=== PATIENT | male | born 1935 | race Caucasian/White ===

== ENCOUNTER 2018-02-16 15:09 | Inpatient (IN) | payer BC ==
[~2018-02-16] VITALS: Ht 162.6 cm; Wt 99.3 kg
[~2018-02-16 15:09] MED LIST: ADULT LOW DOSE81 MG PO; DESYREL; KLONOPIN; LORTAB 5 MG/5001 TAB PO; NABUMETONE; NORCO 5-325 TA1 EACH PO; PRINIVIL; RELAFEN500 MG PO; SIMVASTATIN
[2018-02-16 15:23] VITALS: BP 112/79
[2018-02-16 15:57] LABS: ABSOLUTE EOSINOPHILS 0.2 thou/uL (0.0-0.7); ABSOLUTE LYMPHOCYTES 0.6 thou/uL (0.8-5.3); ABSOLUTE MONOCYTES 0.4 thou/uL (0.0-1.2); ABSOLUTE NEUTROPHILS 4.6 thou/uL (1.6-8.1); BASOPHILS 0.6 %; EOSINOPHILS 3.7 %; HEMATOCRIT 39.3 % (42.0-52.0); LYMPHOCYTES 10.3 %; MCH 33.6 pg (26.0-34.0); MCHC 33.1 g/dL (28.0-37.0); MCV 101.4 fL (80.0-100.0); MONOCYTES 7.4 %; MPV 7.4 fl. (7.2-11.1); NUCLEATED RBCS 0 /100WBC; PLATELET COUNT* 201 thou/uL (150-400); RBC 3.88 mil/uL (4.50-6.00); RDW-CV 13.8 % (10.5-14.5); WBC 5.9 thou/uL (4.0-11.0)
[2018-02-16 16:27] LABS: ALKALINE PHOSPHATASE 54 U/L (46-116); ANION GAP 6 mmol/L (7-16); BUN 18 mg/dL (7-18); CALCIUM 8.8 mg/dL (8.5-10.1); CHLORIDE 102 mmol/L (98-107); CO2 31 mmol/L (21-32); CREATININE 0.9 mg/dL (0.6-1.3); GLUCOSE 145 mg/dL (70-99); LIPASE 74 U/L (73-393); NT-PRO BRAIN NAT PEPTIDE 220 pg/mL (<300); POTASSIUM 3.7 mmol/L (3.5-5.1); SGOT 19 U/L (15-37); SGPT 30 U/L (30-65); SODIUM 139 mmol/L (136-145); TOTAL BILIRUBIN 0.3 mg/dL (<0.1-1.0); TOTAL PROTEIN 6.9 g/dL (6.4-8.2); TROPONIN-I LEVEL <0.06 ng/mL (<0.06)
[2018-02-16 16:42] LABS: BE 5.5 mmol/L (-2 to +3); PO2 86.6 mmHg (75.0-100.0); pH 7.383 (7.340-7.450)
[2018-02-16 18:10] VITALS: BP 136/82
[2018-02-16] MEDS ORDERED: XANAX 0.25 MG0.25 MG PO (18:23)
[2018-02-16] MEDS ORDERED: NEURONTIN600 MG PO (18:24)
[2018-02-16] MEDS ORDERED: LASIX 40 MG TAB40 M2 PO (18:24)
[2018-02-16] MEDS ORDERED: SERTRALINE HCL100 MG PO (18:26)
[2018-02-16] MEDS ORDERED: NEUPRO1 EAC1 TOP (18:26)
[2018-02-16] MEDS ORDERED: TOPAMAX 25 MG T25 M1 PO (18:27)
[2018-02-16] MEDS ORDERED: TRAMADOL 50 MG50 MG PO (18:27)
[2018-02-16] MEDS ORDERED: ULTRAM 50MG TAB50 MG PO (18:28)
[2018-02-16] MEDS ORDERED: LIPITOR10 MG PO (18:29)
[2018-02-16 21:00] VITALS: BP 151/75
[2018-02-17] VITALS: BP 124/71
[2018-02-17 04:38] VITALS: BP 126/66
[2018-02-17 08:30] VITALS: BP 139/75
--- NOTE | 2018-02-17 10:12 | EKG ---
[place] [address] ELECTROCARDIOGRAM REPORT Name: DANA PEREZ Room: [address] IN .R.#: [id number] Admission: 02/16/18 Attend Phys: Taco Gaitan Discharge: Date of : 37 Report #: [id number] THIS REPORT FOR: //name// [facility] ED Test Date: 2018-02-16 Test Time: 15:21:01 Pat Name: DANA CHRIS Department: Room: Gender: Course Instructor: : 1935 Requested By: Earline Matias Order Number: [id number] MD: Maxi Ferrer Measurements Intervals [place] Rate: 116 P: 22 ID: [id number] QRS: 59 QRSD: 86 T: -6 QT: 312 QTc: 434 Interpretive Statements Sinus tachycardia Borderline T abnormalities, inferior leads No previous ECG available for comparison Electronically Signed On 02-17-2018 10:12:35 CDT by Maxi Ferrer [email or web address] <ELECTRONICALLY SIGNED> By: Maxi Ferrer MD, [facility] 02/17/18 1012 1521 20 Maxi Ferrer MD, FACC /EPI
[2018-02-17 12:12] VITALS: BP 141/76
[2018-02-17 15:48] VITALS: BP 146/75
[2018-02-17 19:30] VITALS: BP 107/60
[2018-02-18] VITALS: BP 125/63; BP 138/84
[2018-02-18 03:48] VITALS: BP 143/91
[2018-02-18 07:55] VITALS: BP 134/69
--- NOTE | 2018-02-18 08:12 | CON ---
[address] [address] CONSULTATION Name: DANA PEREZ Room: [address] IN M.R.#: [id number] Admission: 02/16/18 Attend Phys: Taco Gaitan Discharge: Date of : 37 Report #: [id number] THIS REPORT FOR: //name// CC: Josué Caruso REASON FOR CONSULTATION: Acute respiratory failure. HISTORY OF PRESENT ILLNESS: This is an 83-year-old male patient with history of COPD and obstructive sleep apnea. He told me he has an oxygen concentrator at home, that he wears oxygen at night. Also, he had a CPAP machine for almost 10 years now, but he does not use it because the mask is uncomfortable. He told me he has history of COPD. He presented to the hospital with a 2-day history of increasing shortness of breath, cough and some wheezes, although he does not think that wheezes are too much. The cough is mostly dry, not producing any sputum. He denied any sick contact. He denies any runny nose, sore throat. He denied any fever, chills, chest pain, or abdominal pain. He had no lower extremity edema. He denied any headache or blurring of vision. He denied any PND or orthopnea. He had no calf tenderness, was ambulating fairly well. Upon hospitalization, he was placed on oxygen and when I saw him this morning, he reports some improvement. ALLERGIES: AMOXICILLIN AND AUGMENTIN. HOME MEDICATIONS: Aspirin, alprazolam, Lasix, gabapentin, Neupro, sertraline, tramadol, atorvastatin. PAST SURGICAL HISTORY: Bilateral shoulder surgery, angioplasty, CABG, appendectomy, history of surgery for throat cancer, left knee surgery, and restless leg syndrome. PAST MEDICAL HISTORY: Includes restless leg syndrome, COPD, chronic respiratory failure on home oxygen. FAMILY HISTORY: Reviewed with the patient, noncontributory. SOCIAL HISTORY: He is an ex-smoker, quit 30 years ago, but he reports that he smoked for 30 years. REVIEW OF SYSTEMS: He denied fever, chills, blurring of vision, tinnitus, sinus congestion, dysarthria. He denied nausea, vomiting, palpitations, localized pain, depression, thyroid disease, bleeding from any orifice. The rest of the review of system was negative, 12-system review of the patient. PHYSICAL EXAMINATION: [place] [address] CONSULTATION Name: CHRISDANA DANG Taco Room: [address]#: [id number] Admission: 02/16/18 Attend Phys: Taco Gaitan Discharge: Date of : 37 Report #: [id number] GENERAL: Alert, cooperative, oriented. VITAL SIGNS: On examination, he is on 2 liters oxygen with saturation more than 90%. His blood pressure is 126/66, breathing 18 times per minute with a pulse of 80, afebrile. HEAD: Normocephalic, atraumatic. EYES: Pupils are equal, reactive to light. Extraocular muscle movement intact. NECK: Supple. No palpable lymph node, no palpable thyroid. Trachea is central. CHEST: Diminished air movement bilaterally, prolonged expiratory phase with wheezes. Some occasional rhonchi. HEART: S1, S2. No murmur, no gallop. ABDOMEN: Obese, soft, lax, benign, nontender, no masses felt, no tenderness. No hepatosplenomegaly. SKIN: Warm and dry, normal color for age and race, no rash. EXTREMITIES: Lower extremities, no edema noted. No calf tenderness. No clubbing, no cyanosis. NEUROLOGIC: Awake, alert, oriented. Moving 4 extremities spontaneously. No focal weakness. PSYCHIATRIC: Normal insight and judgment. LYMPHATICS: No palpable lymph node. LABORATORY DATA: His imaging was reviewed. His chest x-ray did not show acute process; however, the CTA although was negative for pulmonary embolus, but showed some scattered infiltrates bilaterally. His ABGs are 7.38/55/86. His white cell blood count was 5.9, hemoglobin of 13 and platelets of 210. His creatinine was 0.9 and his BNP was not elevated. Troponin was not elevated. Bicarbonate was 31 with a sodium of 139. IMPRESSION: 1. Xbreb-pe-kegjimc respiratory failure. 2. Chronic obstructive pulmonary disease exacerbation. 3. History of obstructive sleep apnea, although noncompliant to CPAP machine. 4. History of coronary artery disease. 5. History of hypertension. At this point, the patient will be continued to monitor in the hospital. I would continue the patient on antibiotics. Continue to monitor fluid status. Consider further diuresis. He is currently on his home dose of Lasix, continue scheduled nebulization treatment, IV steroids. The patient is reporting some improvement. However, he was asking me if he can go home today, I did advise him I would recommend at least another day of IV antibiotic and steroids before switching to p.o. steroids and start discussing discharge. [address] [address] CONSULTATION Name: DANA PEREZ Room: [address] IN M.R.#: [id number] Admission: 02/16/18 Attend Phys: Taco Gaitan Discharge: Date of : 37 Report #: [id number] Thank you for the consult. We will follow along with you. <ELECTRONICALLY SIGNED> By: Taylor Giles MD 02/18/18811 1004 1251Dsteven Romero MD /[place]
[2018-02-18] MEDS ORDERED: LEVAQUIN 500 M500 M2 PO (11:19)
[2018-02-18] MEDS ORDERED: PREDNISONE 10 M10 MG PO (11:20)
[2018-02-18] MEDS ORDERED: NABUMETONE 750750 M1 PO (11:55)
[2018-02-18 12:00] VITALS: BP 132/69
[2018-02-18 12:13] VITALS: BP 132/69
[2018-02-18] MEDS ORDERED: DUONEB 2.5-0.5 M3 ML INH (13:08)
== END 2018-02-18 13:03 | disposition home or self-care (01) | DRG 871 ==
LOC: M.ERS 15:09 → M.TBA-ER 16:20 → M.2W 16:20
PROVIDERS: Physician Assistant; ADMIT Internal Medicine
DX: A41.9 Sepsis, unspecified organism (principal); J15.6 Pneumonia due to other Gram-negative bacteria; J96.21 Acute and chronic respiratory failure with hypoxia; J96.22 Acute and chronic respiratory failure with hypercapnia; J44.0 Chronic obstructive pulmonary disease with (acute) lower respiratory infection; J44.1 Chronic obstructive pulmonary disease with (acute) exacerbation; G47.33 Obstructive sleep apnea (adult) (pediatric); I10 Essential (primary) hypertension; E78.5 Hyperlipidemia, unspecified; E66.9 Obesity, unspecified; G25.81 Restless legs syndrome; I25.10 Atherosclerotic heart disease of native coronary artery without angina pectoris; Z88.1 Allergy status to other antibiotic agents; Z99.81 Dependence on supplemental oxygen; Z98.61 Coronary angioplasty status; Z95.1 Presence of aortocoronary bypass graft; Z87.891 Personal history of nicotine dependence; Z85.810 Personal history of malignant neoplasm of tongue; Z68.37 Body mass index [BMI] 37.0-37.9, adult; Z79.2 Long term (current) use of antibiotics; Z79.51 Long term (current) use of inhaled steroids

== ENCOUNTER → 2018-06-09 | Outpatient (CLI) | payer BC ==
[~2018-06-09] MED LIST changes: +DUONEB 2.5-0.5 M3 ML INH; +LASIX 40 MG TAB40 M2 PO; +LEVAQUIN 500 M500 M2 PO; +LIPITOR10 MG PO; +NABUMETONE 750750 M1 PO; +NEUPRO1 EAC1 TOP; +NEURONTIN600 MG PO; +PREDNISONE 10 M10 MG PO; +SERTRALINE HCL100 MG PO; +TOPAMAX 25 MG T25 M1 PO; +TRAMADOL 50 MG50 MG PO; +ULTRAM 50MG TAB50 MG PO; +XANAX 0.25 MG0.25 MG PO
--- NOTE | 2018-06-09 14:43 | 2DMMODE ---
[place] [address] 2 D/M-MODE ECHOCARDIOGRAM Name: DANA PEREZ Room: [facility]#: [id number] Admission: 06/09/18 Attend Phys: Maxi Ferrer MD Discharge: Date of : 37 Date of Service: 06/09/18 1443 Report #: [id number] THIS REPORT FOR: //name// APPROVED REPORT Study performed: 06/09/2018 12:42:03 EXAM: Comprehensive 2D, Doppler, and color-flow Echocardiogram Patient Location: Out-Patient Status: routine BSA: 2.08 HR: 86 bpm BP: 105/65 mmHg Other Information Study Quality: Good Indications Dyspnea 2D Dimensions IVSd: 11.33 (7-11mm) LVOT Diam: 20.35 (18-24mm) LVDd: 39.30 mm PWd: 9.67 (7-11mm) Ascending Ao: 27.24 (22-36mm) LVDs: 23.04 (25-40mm) Aortic Root: 32.58 mm Volumes Left Atrial Volume (Systole) LA ESV Index: 20.40 mL/m2 Aortic Valve AoV Peak Alejandro.: 1.75 m/s AO Peak Gr.: 12.22 mmHg LVOT Max P.06 mmHg AO Mean Gr.: 7.24 mmHg LVOT Mean P.51 mmHg LVOT Max V: 0.87 m/s AO V2 VTI: 38.71 cm LVOT Mean V: 0.56 m/s ALISSA (VTI): 1.65 cm2 LVOT V1 VTI: 19.64 cm Mitral Valve E/A Ratio: 0.86 MV Decel. Time: 207.19 ms MV E Max Alejandro.: 0.89 m/s MV PHT: 60.09 [place] [address] 2 D/M-MODE ECHOCARDIOGRAM Name: DANA PEREZ Room: [facility]#: [id number] Admission: 06/09/18 Attend Phys: Maxi Ferrer MD Discharge: Date of : 37 Date of Service: 06/09/18 1443 Report #: [id number] MVA (PHT): 3.66 cm2 TDI E/Lateral E': 8.09 E/Medial E': 11.13 Medial E' Alejandro.: 0.08 m/s Lateral E' Alejandro.: 0.11 m/s Pulmonary Valve PV Peak Alejandro.: 0.86 m/s PV Peak Gr.: 2.99 mmHg Tricuspid Valve RAP Estimate: 5.00 mmHg TR Peak Gr.: 21.95 mmHg RVSP: 26.95 mmHg PA Pressure: 26.95 mmHg Left Ventricle The left ventricle is normal size. There is normal LV segmental wall motion. There is normal left ventricular wall thickness. Left ventricular systolic function is normal. LVEF is 60-65%. Grade I - abnormal relaxation pattern. Right Ventricle The right ventricle is normal size. The right ventricular systolic function is normal. Atria The left atrium size is normal. The right atrium size is normal. Aortic Valve Aortic valve is mildly calcified. No aortic regurgitation is present. Mild aortic stenosis. Mitral Valve The mitral valve is normal in structure. There is no mitral valve regurgitation noted. No evidence of mitral valve stenosis. Tricuspid Valve The tricuspid valve is normal in structure. Mild tricuspid regurgitation. The RVSP is 20 mmHg. Pulmonic Valve The pulmonary valve is normal in structure. There is no pulmonic valvular regurgitation[place] [address] 2 D/M-MODE ECHOCARDIOGRAM Name: DANA PEREZ Room: [facility]#: [id number] Admission: 06/09/18 Attend Phys: Maxi Ferrer MD Discharge: Date of : 37 Date of Service: 06/09/18 1443 Report #: [id number] The aortic root is normal in size. IVC is normal in size and collapses >50% with inspiration. Pericardium There is no pericardial effusion. <Conclusion> The left ventricle is normal size. There is normal left ventricular wall thickness. Left ventricular systolic function is normal. LVEF is 60-65%. Grade I - abnormal relaxation pattern. Mild aortic stenosis. Mild tricuspid regurgitation. The RVSP is 20 mmHg. IVC is normal in size and collapses >50% with inspiration. <ELECTRONICALLY SIGNED> By: Cuong Darby MD, FACC 06/09/18 1443 1443 1443 Cuong Darby MD, FACC /INF
== END ==
LOC: M.CRD 05-05 10:00
DX: I35.0 Nonrheumatic aortic (valve) stenosis (principal); I07.1 Rheumatic tricuspid insufficiency; J96.11 Chronic respiratory failure with hypoxia

== ENCOUNTER → 2020-02-03 | Outpatient (CLI) | payer BC | LOC: M.RAD 10:59 | DX: M19.012 Primary osteoarthritis, left shoulder (principal); M25.812 Other specified joint disorders, left shoulder; M25.712 Osteophyte, left shoulder ==

== ENCOUNTER 2020-02-19 11:20 | Emergency (ER) | payer BC ==
[~2020-02-19] VITALS: Ht 170.2 cm; Wt 102.1 kg
[2020-02-19] MEDS ORDERED: LIPITOR 20 MG T20 M1 PO (11:44)
[2020-02-19] MEDS ORDERED: MAGNESIUM250 M1 PO (11:45)
[2020-02-19 12:59] VITALS: BP 145/66
== END 2020-02-19 13:00 | disposition home or self-care (01) ==
LOC: M.ERS 11:20
DX: M19.012 Primary osteoarthritis, left shoulder (principal); I25.10 Atherosclerotic heart disease of native coronary artery without angina pectoris; G25.81 Restless legs syndrome; Z79.899 Other long term (current) drug therapy; Z88.1 Allergy status to other antibiotic agents; Z79.82 Long term (current) use of aspirin; Z98.890 Other specified postprocedural states; Z98.84 Bariatric surgery status; Z95.5 Presence of coronary angioplasty implant and graft; Z90.49 Acquired absence of other specified parts of digestive tract

== ENCOUNTER 2021-01-24 09:54 | Emergency (ER) | payer BC ==
[~2021-01-24] VITALS: Ht 162.6 cm; Wt 102.7 kg
[~2021-01-24 09:54] MED LIST changes: +LIPITOR 20 MG T20 M1 PO; +MAGNESIUM250 M1 PO
[2021-01-24 10:13] LABS: ABSOLUTE BASOPHILS 0.1 thou/uL (0.0-0.2); ABSOLUTE EOSINOPHILS 0.4 thou/uL (0.0-0.7); ABSOLUTE LYMPHOCYTES 1.5 thou/uL (0.8-5.3); ABSOLUTE MONOCYTES 0.5 thou/uL (0.0-1.2); ABSOLUTE NEUTROPHILS 3.5 thou/uL (1.6-8.1); EOSINOPHILS 6.5 %; HEMATOCRIT 37.7 % (42.0-52.0); HEMOGLOBIN 12.5 gm/dL (14.0-18.0); LYMPHOCYTES 25.1 %; MCH 32.3 pg (26.0-34.0); MCHC 33.1 g/dL (28.0-37.0); MCV 97.5 fL (80.0-100.0); MONOCYTES 8.6 %; MPV 6.8 fl. (7.2-11.1); NUCLEATED RBCS 0 /100WBC; PLATELET COUNT* 233 thou/uL (150-400); POLYS 58.8 %; RBC 3.87 mil/uL (4.50-6.00); RDW-CV 14.1 % (10.5-14.5); WBC 5.9 thou/uL (4.0-11.0)
[2021-01-24 10:22] LABS: CALCIUM 8.9 mg/dL (8.5-10.1); POTASSIUM 4.1 mmol/L (3.5-5.1)
[2021-01-24 10:24] LABS: APTT 25.3 Seconds (25.0-31.3); INR 0.9; PROTIME 10.1 Seconds (9.20-11.50)
[2021-01-24 10:36] LABS: ALBUMIN 3.6 g/dL (3.4-5.0); CK-MB MASS 1.7 ng/mL (<0.5-3.6); MAGNESIUM 2.1 mg/dL (1.8-2.4); TOTAL BILIRUBIN 0.4 mg/dL (<0.1-1.0); TOTAL PROTEIN 6.9 g/dL (6.4-8.2)
[2021-01-24 14:22] VITALS: BP 160/71
--- NOTE | 2021-01-24 15:55 | EKG ---
[place] [address] ELECTROCARDIOGRAM REPORT Name: DANA PEREZ Room: [facility]#: [id number] Admission: 01/24/21 Attend Phys: Discharge: 01/24/21 Date of : 37 Date of Service: 01/24/21 0959 Report #: [id number] THIS REPORT FOR: //name// [facility] ED Test Date: 2021-01-24 Test Time: 09:59:07 Pat Name: DANA PEREZ Department: Room: Gender: Case Supervisor: [place] : 1935 Requested By: Aron Johnson Order Number: [id number] MD: Maxi Ferrer Measurements Intervals [place] Rate: 81 P: 7 TN: 241 QRS: 58 QRSD: 90 T: 24 QT: 373 QTc: 433 Interpretive Statements Sinus rhythm Prolonged TN interval Compared to ECG 02/16/2018 15:21:01 Sinus tachycardia no longer present T-wave abnormality no longer present Electronically Signed On 01-24-2021 15:55:05 CDT by Maxi Ferrer [email or web address] <ELECTRONICALLY SIGNED> By: Maxi Ferrer MD, [facility] 01/24/21 1555 0959 0959 Maxi Ferrer MD, [facility] /EPI
== END 2021-01-24 14:23 | disposition home or self-care (01) ==
LOC: M.ERS 09:54
PROVIDERS: Family Medicine
DX: J44.9 Chronic obstructive pulmonary disease, unspecified (principal); Z20.822 Contact with and (suspected) exposure to COVID-19; Z98.61 Coronary angioplasty status; Z90.49 Acquired absence of other specified parts of digestive tract; Z98.890 Other specified postprocedural states; Z85.21 Personal history of malignant neoplasm of larynx; Z79.82 Long term (current) use of aspirin; Z79.899 Other long term (current) drug therapy

== ENCOUNTER 2021-03-04 08:25 | Inpatient (IN) | payer BC ==
[~2021-03-04] VITALS: Ht 165.1 cm; Wt 107.5 kg
[2021-03-04 08:30] VITALS: BP 145/64
[2021-03-04 09:07] LABS: ABSOLUTE EOSINOPHILS 0.4 thou/uL (0.0-0.7); ABSOLUTE LYMPHOCYTES 1.7 thou/uL (0.8-5.3); ABSOLUTE MONOCYTES 0.6 thou/uL (0.0-1.2); ABSOLUTE NEUTROPHILS 3.8 thou/uL (1.6-8.1); BASOPHILS 0.7 %; EOSINOPHILS 5.9 %; HEMATOCRIT 35.3 % (42.0-52.0); HEMOGLOBIN 11.8 gm/dL (14.0-18.0); LYMPHOCYTES 25.7 %; MCH 32.9 pg (26.0-34.0); MCHC 33.5 g/dL (28.0-37.0); MCV 98.2 fL (80.0-100.0); MONOCYTES 9.2 %; MPV 7.1 fl. (7.2-11.1); NUCLEATED RBCS 0 /100WBC; PLATELET COUNT* 247 thou/uL (150-400); POLYS 58.5 %; RBC 3.59 mil/uL (4.50-6.00); RDW-CV 14.1 % (10.5-14.5); WBC 6.4 thou/uL (4.0-11.0)
[2021-03-04 09:35] LABS: CALCIUM 8.7 mg/dL (8.5-10.1); CREATININE 0.9 mg/dL (0.6-1.3); POTASSIUM 3.7 mmol/L (3.5-5.1)
[2021-03-04 09:40] LABS: ALBUMIN 3.4 g/dL (3.4-5.0); TOTAL BILIRUBIN 0.3 mg/dL (<0.1-1.0); TOTAL PROTEIN 6.5 g/dL (6.4-8.2)
[2021-03-04 10:01] LABS: PROTIME 10.4 Seconds (9.20-11.50)
[2021-03-04 13:50] VITALS: BP 138/56
[2021-03-04 17:45] VITALS: BP 129/99
--- NOTE | 2021-03-04 18:44 | NUR ---
PT A&OX4 VSS. REPORTS IMPROVEMENT IN LUE NUMBNESS, BUT STILL PRESENT. 3L 02 BY NASAL CANNULA, BASELINE HOME USE. PT UP SBA, GAIT STEADY. CONTINENT OF B/B. LAC PATENT, SALINE LOCKED. DRESSING C/D/I. PT DENIES PAIN. PT RESTS IN BED WITH CALL IGHT IN REACH, WILL CONTINUE TO MONITOR
[2021-03-04 20:00] VITALS: BP 141/57
[2021-03-05] VITALS: BP 156/68
[2021-03-05 04:00] VITALS: BP 170/81
--- NOTE | 2021-03-05 04:53 | NUR ---
ASSUMED PT CARE AT APPROX. 1930. PT IS A/OX4. VSS. 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 PT IS ON RA. PT IS CONTINENT OF BOWEL AND BLADDER. PT DENIED C/O DURING THIS SHIFT. ASSESSMENTS COMPLETED. HOURLY ROUND COMPLETE. MEDICATIONS ADMINISTERED PRESCRIBED. FALL PRECAUTIONS IN PLACE FOR SAFETY. CALL LIGHT WITHIN REACH. NO ACUTE CHANGES DURING SHIFT. WILL CONT. TO MONITOR.
--- NOTE | 2021-03-05 07:20 | NUR ---
CHANGE OF SHIFT REPORT GIVEN PATIENT SEEN AT BEDSIDE, IN BED RESTING ASSUMED PATIENT CARE
[2021-03-05 08:00] VITALS: BP 108/71
[2021-03-05] MEDS ORDERED: NEURONTIN800 MG PO (09:30)
--- NOTE | 2021-03-05 10:23 | EKG ---
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
[2021-03-05 12:46] VITALS: BP 124/67
--- NOTE | 2021-03-05 13:51 | 2DMMODE ---
[place] [address] 2 D/M-MODE ECHOCARDIOGRAM Name: DANA PEREZ Room: [address] IN .R.#: [id number] Admission: 03/04/21 Attend Phys: Sg Howard Discharge: Date of : 37 Date of Service: 03/05/21 1350 Report #: [id number] THIS REPORT FOR: cc: Josué Marc MD, Dean L. MD Blick, David R. MD [facility] ~ APPROVED REPORT Study performed: 03/05/2021 10:58:29 EXAM: Comprehensive 2D, Doppler, and color-flow Echocardiogram Patient Location: In-Patient Room #: 223 Status: routine BSA: 2.13 HR: 77 bpm BP: 108/71 mmHg Rhythm: NSR Other Information Study Quality: Good Indications CVA/TIA Echo Enhancing Agent Indication: Rule out Shunt Agent(s) / Amount(s) Used: Agitated Saline 10 cc 2D Dimensions IVSd: 10.03 (7-11mm) LVOT Diam: 20.96 (18-24mm) LVDd: 46.43 mm PWd: 10.24 (7-11mm) Ascending Ao: 33.68 (22-36mm) LVDs: 30.19 (25-40mm) Aortic Root: 36.23 mm Volumes Left Atrial Volume (Systole) LA ESV Index: 29.40 mL/m2 Aortic Valve AoV Peak Aleajndro.: 1.88 m/s AO Peak Gr.: 14.17 mmHg LVOT Max P.87 mmHg AO Mean Gr.: 8.95 mmHg LVOT Mean P.95 [place] [address] 2 D/M-MODE ECHOCARDIOGRAM Name: DANA PEREZ Room: [address] IN .R.#: [id number] Admission: 03/04/21 Attend Phys: Sg Howard Discharge: Date of : 37 Date of Service: 03/05/21 1350 Report #: [id number] LVOT Max V: 0.68 m/s AO V2 VTI: 44.12 cm LVOT Mean V: 0.45 m/s ALISSA (VTI): 1.26 cm2 LVOT V1 VTI: 16.10 cm Mitral Valve E/A Ratio: 0.91 MV Decel. Time: 188.55 ms MV E Max Alejandro.: 0.99 m/s MV PHT: 54.68 ms MVA (PHT): 4.02 cm2 TDI E/Lateral E': 9.00 E/Medial E': 9.90 Medial E' Alejandro.: 0.10 m/s Lateral E' Alejandro.: 0.11 m/s Pulmonary Valve PV Peak Alejandro.: 0.94 m/s PV Peak Gr.: 3.57 mmHg Tricuspid Valve RAP Estimate: 5.00 mmHg TR Peak Gr.: 22.72 mmHg RVSP: 27.00 mmHg PA Pressure: 27.00 mmHg Left Ventricle The left ventricle is normal size. There is normal LV segmental wall motion. There is normal left ventricular wall thickness. Left ventricular systolic function is normal. The left ventricular ejection fraction is within the normal range. LVEF is 55-60%. Grade I - abnormal relaxation pattern. Right Ventricle The right ventricle is normal size. The right ventricular systolic function is normal. Atria Left atrium is mildly dilated. The interatrial septum is intact with no evidence for an atrial septal defect. The right atrium size is normal. Aortic Valve Aortic valve is calcified. No aortic regurgitation is present. Mild aortic stenosis. Mitral Valve The mitral valve is normal in structure. There [place] [address] 2 D/M-MODE ECHOCARDIOGRAM Name: DANA PEREZ Room: [address] IN ..#: [id number] Admission: 03/04/21 Attend Phys: Sg Howard Discharge: Date of : 37 Date of Service: 03/05/21 1350 Report #: [id number] regurgitation noted. No evidence of mitral valve stenosis. Tricuspid Valve The tricuspid valve is normal in structure. Trace tricuspid regurgitation. No pulmonary hypertension. Pulmonic Valve The pulmonary valve is normal in structure. Trace pulmonic regurgitation. Great Vessels The aortic root is normal in size. IVC is normal in size and collapses >50% with inspiration. Pericardium There is no pericardial effusion. <Conclusion> LVEF is 55-60%. Left atrium is mildly dilated. Mild aortic stenosis. The interatrial septum is intact with no evidence for an atrial septal defect. <ELECTRONICALLY SIGNED> By: Maxi Ferrer MD, FACC 03/05/21 1350 1350 1350 Maxi Ferrer MD, FACC /INF
--- NOTE | 2021-03-05 16:07 | NUR ---
CM ASSESSMENT: PT A&O, NORMALLY INDPENDENT WITH ADL'S, AND DRIVES. PT [place]. PT RESIDES AT HOME WITH SPOUSE AND SHE IS AT THE BEDSIDE AND ASSIST WITH ASSESSMENT. PT USES A WALKER FOR MOBILITY. PT ALSO USES 3L O2 AT HOME AT BASELINE PROVIDED BY [facility]. PT HAS 0 HX OF HH OR SNF. PT CURRENTLY RECIEVES OUTPATIENT PT/OT AT [facility]. CM WILL REMAIN AVAILABLE TO ASSIST AND FOLLOW NEEDED.
[2021-03-05] MEDS ORDERED: CLOPIDOGREL75 MG PO (17:33)
[2021-03-05] MEDS ORDERED: LIPITOR 40 MG T40 M1 PO (17:34)
[2021-03-05 18:11] VITALS: BP 141/74
--- NOTE | 2021-03-05 22:57 | NUR ---
ASSUMED CARE OF PT AFTER REPORT AT 193. PT A&OX4. PT WITH ORDER TO TRANSFER TO . PT ON O2 AT 3L NC. PT DENIES PAIN. MEDS GIVEN PER NOV. PT TRANFERRED TO WITH [facility] DISPATCH AT 2239. UPDATED GREG DE LEON REGARDING TRANSFER.
--- NOTE | 2021-03-06 12:48 | CON ---
[address] [address] CONSULTATION Name: DANA PEREZ Room: [address] IN M.R.#: [id number] Admission: 03/04/21 Attend Phys: Darin Perkins Discharge: 03/05/21 Date of : 37 Report #: [id number] THIS REPORT FOR: cc: Josué Marc MD, Dean L. MD Khosla,Mikael Silverman MD ~ DOC #: [id number] Mikael Salter MD DATE OF CONSULTATION: 03/04/2021 HISTORY OF PRESENT ILLNESS: This is an 86-year-old male patient who was seen by me in the Emergency Room. I talked to Emergency Room physician earlier and then I talked to Emergency Room physician later on. The patient had presented with left-sided numbness. It predominantly involved the left arm, but it also involved the left lower extremity. By the time I saw him, his left lower extremity symptoms have resolved. Left arm numbness was still there, but was better. From all indication it looks like he also had some weakness on the left side in the left upper extremity, but the patient is a poor historian in that regard. 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 He has known about it and has left it the way it is. He had radiation and surgery for throat cancer. He had a left knee surgery. He had a pretty pronounced restless leg syndrome. He says they have tried multiple medications, presently, he is on gabapentin. Record indicated he is also on Neupro patch. That was his relevant 14-point review of system. PAST MEDICAL HISTORY: Positive for severe restless leg syndrome. FAMILY HISTORY: Unremarkable. SOCIAL HISTORY: He does not use alcohol or smoke. PHYSICAL EXAMINATION: GENERAL: Indicate the patient is alert, very hard of hearing. Higher function is very difficult, but family thinks his speech is back to his baseline. To me, it looks somewhat dysarthric, but the family says this is baseline. He says the same thing. NEUROLOGIC: His cranial nerve examination the best I can tell is that he is hard of hearing, but there does not appear to be any prominent facial palsy, mild one I cannot exclude fully. He does look trace weak on the left side, but he can move it against gravity. He says sensation he can feel in the left arm, but it looks somewhat different. The leg he moves against gravity reasonably well. He says he has a position sense there. HEENT: I could [place] [address] CONSULTATION Name: DANA PEREZ Room: [address] IN M.R.#: [id number] Admission: 03/04/21 Attend Phys: Darin Perkins Discharge: 03/05/21 Date of : 37 Report #: [id number] CARDIAC: His cardiac examination is unremarkable. LUNGS: Respiratory examination is unremarkable. Subsequently, his CT angiogram, came back and that demonstrated a hemodynamically significant stenosis on the right side. VITAL SIGNS: His pulse rate is 82, blood pressure is 134/53. LABORATORY DATA: His white count is normal. DIAGNOSTIC DATA: His CT and CT angio was reviewed and summarized as above. 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 IMPRESSION: Symptoms suggestive of an ischemic event, either transient ischemic attack or a small stroke on the left side with hemodynamically significant stenosis in the right carotid. Situation is complicated because the patient also has occlusion of the subclavian artery there, but it does not look like he has any vascular problem in the left arm the best I can tell, but that may have to be assessed. RECOMMENDATIONS: 1. I called emergency room physician again. My recommendation was that this patient should be transferred to a facility as soon as possible for a vascular surgeon to look at it, both for right carotid disease and to make sure there is no vascular problem on the left upper extremity because of the subclavian artery stenosis. I am going to call Dr. Howard, who is the hospitalist as I understand, and will talk to them also. 2. His symptoms were minor. He was offered TPA. He and the family declined TPA. His symptoms were mainly sensory when I saw him. They realized that the patient can become worse later on and so TPA was held, but they were given all the options. More than 50 minutes of time was spent taking care of this patient today and majority was spent in counseling and coordinating. Mikael Salter MD PK/SUB/SOT <ELECTRONICALLY SIGNED> By: Mikael Salter MD 03/06/21 1248 1610 2143Pjam Salter MD /nt
== END 2021-03-05 22:50 | disposition short-term general hospital (02) | DRG 64 ==
LOC: M.ERS 08:25 → M.2W 09:55 → M.TBA-ER 09:55 → M.2W 17:58
PROVIDERS: Emergency Medicine Emergency Medical Services; ADMIT Internal Medicine; ATTEND Internal Medicine
DX: I63.9 Cerebral infarction, unspecified (principal); J15.6 Pneumonia due to other Gram-negative bacteria; G81.94 Hemiplegia, unspecified affecting left nondominant side; I65.21 Occlusion and stenosis of right carotid artery; J44.9 Chronic obstructive pulmonary disease, unspecified; G25.81 Restless legs syndrome; E78.5 Hyperlipidemia, unspecified; F32.9 Major depressive disorder, single episode, unspecified; Z20.822 Contact with and (suspected) exposure to COVID-19; Z90.49 Acquired absence of other specified parts of digestive tract; Z95.1 Presence of aortocoronary bypass graft; Z79.82 Long term (current) use of aspirin; Z79.899 Other long term (current) drug therapy; Z88.1 Allergy status to other antibiotic agents; Z88.8 Allergy status to other drugs, medicaments and biological substances; Z92.3 Personal history of irradiation

== ENCOUNTER 2021-04-27 12:12 | Inpatient (IN) | payer BC ==
[~2021-04-27] VITALS: Ht 162.6 cm; Wt 99.8 kg
[~2021-04-27 12:12] MED LIST changes: +CLOPIDOGREL75 MG PO; +LIPITOR 40 MG T40 M1 PO; +NEURONTIN800 MG PO
[2021-04-27 12:25] VITALS: BP 166/84
[2021-04-27 12:51] LABS: ABSOLUTE BASOPHILS 0.1 thou/uL (0.0-0.2); ABSOLUTE EOSINOPHILS 0.3 thou/uL (0.0-0.7); ABSOLUTE MONOCYTES 0.5 thou/uL (0.0-1.2); ABSOLUTE NEUTROPHILS 7.7 thou/uL (1.6-8.1); BASOPHILS 0.8 %; EOSINOPHILS 3.1 %; HEMATOCRIT 39.7 % (42.0-52.0); HEMOGLOBIN 12.8 gm/dL (14.0-18.0); LYMPHOCYTES 10.7 %; MCH 33.1 pg (26.0-34.0); MCHC 32.2 g/dL (28.0-37.0); MCV 102.5 fL (80.0-100.0); MONOCYTES 4.8 %; MPV 7.3 fl. (7.2-11.1); NUCLEATED RBCS 0 /100WBC; PLATELET COUNT* 212 thou/uL (150-400); POLYS 80.6 %; RBC 3.87 mil/uL (4.50-6.00); RDW-CV 15.4 % (10.5-14.5); WBC 9.6 thou/uL (4.0-11.0)
[2021-04-27 13:06] LABS: CALCIUM 9.1 mg/dL (8.5-10.1); CREATININE 0.9 mg/dL (0.6-1.3); POTASSIUM 4.1 mmol/L (3.5-5.1)
[2021-04-27 13:11] LABS: TOTAL BILIRUBIN 0.5 mg/dL (<0.1-1.0); TOTAL PROTEIN 7.2 g/dL (6.4-8.2)
--- NOTE | 2021-04-27 14:43 | EKG ---
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 : 1935 Requested By: Joselito Walker Order Number: [id number] MD: Maxi Ferrer Measurements Intervals [place] Rate: 85 P: 15 NJ: 228 QRS: 66 QRSD: 94 T: 22 QT: 390 QTc: 464 Interpretive Statements Sinus rhythm Prolonged [place] interval Borderline T wave abnormalities Baseline wander in lead(s) V2,V5,V6 Compared to ECG 03/04/2021 08:33:05 no change Electronically Signed On 04-27-2021 14:42:52 CDT by Maxi Ferrer [email or web address] <ELECTRONICALLY SIGNED> By: Maxi Ferrer MD, FAC 04/27/21 1442 1229 1229 Maxi Ferrer MD, FAC /EPI
[2021-04-27 17:02] LABS: URINE BILIRUBIN NEGATIVE (Negative); URINE BLOOD NEGATIVE (Negative); URINE CLARITY CLEAR; URINE COLOR YELLOW; URINE GLUCOSE-RANDOM NEGATIVE (Negative); URINE KETONES NEGATIVE (Negative); URINE LEUKOCYTES-REFLEX NEGATIVE (Negative); URINE NITRITE-REFLEX NEGATIVE (Negative); URINE PROTEIN NEGATIVE (Negative); URINE UROBILINOGEN 0.2 E.U./dl (0.2-1.0)
[2021-04-27 17:56] VITALS: BP 154/54
[2021-04-27 21:59] VITALS: BP 145/65
[2021-04-28 02:00] VITALS: BP 145/65
[2021-04-28 08:00] VITALS: BP 128/58
[2021-04-28 08:52] LABS: AMP/METHAMP Negative (Negative); BARBITURATES Negative (Negative); BENZODIAZEPINES Negative (Negative); COCAINE Negative (Negative); METHADONE Negative (Negative); OPIATES Negative (Negative); PCP Negative (Negative); THC Negative (Negative)
[2021-04-28] MEDS ORDERED: XANAX 0.25 MG0.25 MG PO (10:54)
[2021-04-28] MEDS ORDERED: ELIQUIS5 MG PO (10:55)
[2021-04-28] MEDS ORDERED: OXAYDO5 MG PO (10:56)
[2021-04-28] MEDS ORDERED: VITAMIN D350 MCG PO (10:58)
[2021-04-28 19:30] VITALS: BP 131/70
[2021-04-29 08:00] VITALS: BP 137/83
[2021-04-29 08:22] LABS: HEMATOCRIT 39.4 % (42.0-52.0); HEMOGLOBIN 12.9 gm/dL (14.0-18.0); MCH 33.2 pg (26.0-34.0); MCHC 32.9 g/dL (28.0-37.0); MPV 7.2 fl. (7.2-11.1); RBC 3.89 mil/uL (4.50-6.00); RDW-CV 15.3 % (10.5-14.5); WBC 7.2 thou/uL (4.0-11.0)
[2021-04-29 08:29] LABS: CALCIUM 9.2 mg/dL (8.5-10.1); CREATININE 0.9 mg/dL (0.6-1.3); POTASSIUM 3.9 mmol/L (3.5-5.1)
[2021-04-29 18:17] VITALS: BP 122/83
[2021-04-29 23:47] VITALS: BP 120/75
[2021-04-30 04:25] VITALS: BP 130/80
[2021-04-30 07:47] LABS: HEMATOCRIT 40.8 % (42.0-52.0); HEMOGLOBIN 13.2 gm/dL (14.0-18.0); MCH 32.7 pg (26.0-34.0); MCHC 32.3 g/dL (28.0-37.0); MCV 101.2 fL (80.0-100.0); MPV 7.3 fl. (7.2-11.1); RBC 4.03 mil/uL (4.50-6.00); RDW-CV 15.5 % (10.5-14.5); WBC 7.4 thou/uL (4.0-11.0)
[2021-04-30 07:56] LABS: CALCIUM 8.8 mg/dL (8.5-10.1)
[2021-04-30 08:00] VITALS: BP 151/79
[2021-04-30 12:00] VITALS: BP 130/61
[2021-04-30 16:00] VITALS: BP 131/63
[2021-05-01 00:09] VITALS: BP 145/61
[2021-05-01 04:12] LABS: HEMATOCRIT 40.4 % (42.0-52.0); HEMOGLOBIN 13.1 gm/dL (14.0-18.0); MCH 32.7 pg (26.0-34.0); MCHC 32.4 g/dL (28.0-37.0); MPV 7.4 fl. (7.2-11.1); RDW-CV 14.9 % (10.5-14.5); WBC 7.2 thou/uL (4.0-11.0)
[2021-05-01 04:15] VITALS: BP 140/53
[2021-05-01 04:25] LABS: POTASSIUM 3.7 mmol/L (3.5-5.1)
[2021-05-01 08:10] VITALS: BP 104/77
[2021-05-01 09:34] VITALS: BP 104/77
[2021-05-01 11:21] VITALS: BP 104/77
[2021-05-01 12:20] VITALS: BP 104/77
== END 2021-05-01 12:15 | disposition home health service (06) | DRG 92 ==
LOC: M.ERS 12:12 → M.TBA-ER 13:56 → M.2W 13:56
PROVIDERS: Emergency Medicine Emergency Medical Services; Family Medicine; Internal Medicine; ADMIT Internal Medicine; ATTEND Internal Medicine
PROC: 5A09357 Assistance with Respiratory Ventilation, Less than 24 Consecutive Hours, Continuous Positive Airway Pressure (ICD-10-PCS; principal; 2021-04-28)
DX: G92 Toxic encephalopathy (principal); E87.1 Hypo-osmolality and hyponatremia; R40.0 Somnolence; G25.81 Restless legs syndrome; J44.9 Chronic obstructive pulmonary disease, unspecified; E78.5 Hyperlipidemia, unspecified; F32.9 Major depressive disorder, single episode, unspecified; Z20.822 Contact with and (suspected) exposure to COVID-19; Z86.73 Personal history of transient ischemic attack (TIA), and cerebral infarction without residual deficits; Z95.1 Presence of aortocoronary bypass graft; Z95.5 Presence of coronary angioplasty implant and graft; Z90.49 Acquired absence of other specified parts of digestive tract; Z79.01 Long term (current) use of anticoagulants; Z79.82 Long term (current) use of aspirin; Z79.899 Other long term (current) drug therapy; Z88.1 Allergy status to other antibiotic agents; T50.995A Adverse effect of other drugs, medicaments and biological substances, initial encounter

== ENCOUNTER → 2021-07-11 | Outpatient (CLI) | payer BC ==
[~2021-07-11] MED LIST changes: +ELIQUIS5 MG PO; +OXAYDO5 MG PO; +VITAMIN D350 MCG PO
== END ==
LOC: M.WC 09:58
PROVIDERS: ATTEND Surgery
DX: R21 Rash and other nonspecific skin eruption (principal); L29.8 Other pruritus; E11.40 Type 2 diabetes mellitus with diabetic neuropathy, unspecified; E78.00 Pure hypercholesterolemia, unspecified; G25.81 Restless legs syndrome; G47.30 Sleep apnea, unspecified; I10 Essential (primary) hypertension; I25.10 Atherosclerotic heart disease of native coronary artery without angina pectoris; F32.9 Major depressive disorder, single episode, unspecified; Z85.818 Personal history of malignant neoplasm of other sites of lip, oral cavity, and pharynx; Z87.891 Personal history of nicotine dependence; Z90.49 Acquired absence of other specified parts of digestive tract; Z95.5 Presence of coronary angioplasty implant and graft; Z95.1 Presence of aortocoronary bypass graft; Z96.652 Presence of left artificial knee joint; Z85.72 Personal history of non-Hodgkin lymphomas; Z79.82 Long term (current) use of aspirin